=== PATIENT | female | born 1995 | race Caucasian/White ===

== ENCOUNTER 2020-02-05 07:54 | Emergency (ER) | payer OTHER ==
[~2020-02-05] VITALS: Ht 167.6 cm; Wt 68.9 kg
[2020-02-05 08:08] VITALS: BP_SYST 140
--- NOTE | 2020-02-05 08:11 | NUR ---
Patient to ER bed 6 to gown for evaluation. Side rails up. Report given to REKHA Horowitz.
--- NOTE | 2020-02-05 08:17 | NUR ---
DR. FAM AT BEDSIDE ASSESSING PT.
--- NOTE | 2020-02-05 08:18 | NUR ---
RN HAS SPOKEN TO PT. PT C/O N/V X 1 WEEK. PT STATED SHE HAS LOST WT. SHE IS SHE STATES.
[2020-02-05] MEDS ORDERED: NACL 0.9% 1,000 ML IV ONE (08:30)
[2020-02-05] MEDS ORDERED: PROCHLORPERAZINE EDISYLATE 10 MG/2 ML VIAL IVP ONE (08:30)
--- NOTE | 2020-02-05 08:30 | NUR ---
IV INSERTED TO THE RIGHT AC IN ONE ATTEMPT WITH 22G. IV FLUIDS INFUSING AND ANTI NAUSEA MEDICATION GIVEN. PT IS STABLE , NO VOMITING IN ER THUS FAR. PT STATED SHE IS 15 WEEKS .
[2020-02-05 09:04] LABS: CALCIUM 9.5 mg/dL (8.4-11.0); CREATININE 0.48 mg/dL (0.55-1.30); POTASSIUM 3.5 mmol/L (3.5-5.1)
[2020-02-05 09:31] VITALS: BP_SYST 132
--- NOTE | 2020-02-05 09:32 | NUR ---
Patient given written and verbal discharge instructions and verbalizes understanding. ER MD discussed with patient the results and treatment provided. Patient in stable condition. ID arm band removed. IV catheter removed intact and dressing applied, no active bleeding. Rx of B6, AND DOXYLAMINE given. Patient educated on pain management and to follow up with PMD. Pain Scale0/10 . Opportunity for questions provided and answered. Medication side effect fact sheet provided.
== END 2020-02-05 09:31 | disposition home or self-care (01) ==
LOC: SED 07:54
DX: O21.0 Mild hyperemesis gravidarum (principal); Z3A.13 13 weeks gestation of pregnancy
CPT/HCPCS: 36415; 80048; 96361; 96374; 99283; J0780; J7030

== ENCOUNTER 2021-12-07 08:31 | Emergency (ER) | payer OTHER, BC ==
[~2021-12-07] VITALS: Ht 167.6 cm; Wt 61.2 kg
[2021-12-07 08:46] VITALS: BP_SYST 122
[2021-12-07 09:23] LABS: BILIRUBIN,URINE NEGATIVE (NEGATIVE); BLOOD, URINE NEGATIVE (NEGATIVE); COLOR,URINE YELLOW (YELLOW); GLUCOSE,URINE NEGATIVE (NEGATIVE); KETONES,URINE NEGATIVE (NEGATIVE); LEUKOCYTE ESTERASE ,URINE NEGATIVE (NEGATIVE); NITRITE, URINE NEGATIVE (NEGATIVE); PH,URINE 7.5 (5.0-8.0); PROTEIN URINE NEGATIVE (NEGATIVE); UROBILINOGEN,URINE 0.2 (0.2-1.0)
[2021-12-07 09:27] LABS: CLARITY/URINE CLEAR (CLEAR)
[2021-12-07] MEDS ORDERED: ACETAMINOPHEN 325 MG TABLET PO ONE (09:45)
[2021-12-07 13:52] VITALS: BP_SYST 104
== END 2021-12-07 13:52 | disposition home or self-care (01) ==
LOC: SED 08:31
DX: O20.0 Threatened abortion (principal); Z3A.01 Less than 8 weeks gestation of pregnancy
CPT/HCPCS: 36415; 76801; 76817; 81003; 81025; 84702; 99284

== ENCOUNTER 2022-06-05 22:04 | Emergency (ER) | payer OTHER, BC ==
[~2022-06-05] VITALS: Ht 167.6 cm; Wt 61.2 kg
[2022-06-05 22:16] VITALS: BP_SYST 128
--- NOTE | 2022-06-05 22:40 | NUR ---
Pt brought by self, A&Ox4, pt presents to ER with lower abdominal pain , pt states she did a test yesterday yesterday and it was positive, LMP 05/05/22, skin pink and warm, cap refill <3, VSS, will cont to monitor.
--- NOTE | 2022-06-05 23:00 | NUR ---
ER at bedside examining patient.
--- NOTE | 2022-06-06 00:31 | NUR ---
PER PT REQUESTED TO NOT CONTACT EMERGENCY CONTACT WITH INFORMATION.
[2022-06-06 00:36] LABS: BASOPHILS % (AUTO) 0.3 % (0.0-2.0); EOSINOPHILS # (AUTO) 0.1 K/uL (0.0-0.4); EOSINOPHILS % (AUTO) 0.6 % (0.0-4.0); HEMATOCRIT 38.2 % (36-48); LYMPHOCYTES # (AUTO) 2.7 K/uL (1.0-5.5); LYMPHOCYTES % (AUTO) 30.2 % (20.5-51.5); MEAN CORPUSCULAR HEMOGLOBIN 30 pg (27-31); MEAN CORPUSCULAR HGB CONC 34 % (32-36); MEAN CORPUSCULAR VOLUME 88 fL (79.0-98.0); MONOCYTES # (AUTO) 0.6 K/uL (0.0-1.0); MONOCYTES % (AUTO) 6.2 % (1.7-9.3); NEUTROPHILS # (AUTO) 5.6 K/uL (1.8-7.7); NEUTROPHILS % (AUTO) 62.7 % (40.0-70.0); PLATELET COUNT (AUTO) 306 K/uL (130-430); RED BLOOD CELL COUNT(AUTO) 4.35 MIL/uL (4.2-6.2); RED CELL DISTRIBUTION WIDTH 13.9 % (9.0-15.0)
[2022-06-06 01:03] LABS: CALCIUM 9.4 mg/dL (8.4-11.0); CREATININE 0.62 mg/dL (0.55-1.30)
[2022-06-06 01:17] LABS: ALBUMIN 4.3 g/dL (3.4-4.8)
[2022-06-06 02:30] VITALS: BP_SYST 116
--- NOTE | 2022-06-06 02:30 | NUR ---
Patient given written and verbal discharge instructions and verbalizes understanding. ER MD discussed with patient the results and treatment provided. Patient in stable condition. ID arm band removed. Patient educated on pain management and to follow up with PMD. Pain Scale 0/10 Opportunity for questions provided and answered.
== END 2022-06-06 02:30 | disposition home or self-care (01) ==
LOC: SED 22:04
DX: O26.891 Other specified pregnancy related conditions, first trimester (principal); Z3A.01 Less than 8 weeks gestation of pregnancy; Z79.899 Other long term (current) drug therapy
CPT/HCPCS: 36415; 76801; 76817; 80053; 81002; 81025; 84702; 85025; 86901; 99284

== ENCOUNTER 2023-05-12 18:08 | Emergency (ER) | payer OTHER, BC ==
[~2023-05-12] VITALS: Ht 167.6 cm; Wt 59.0 kg
[2023-05-12 18:20] VITALS: BP_SYST 120; PULSE 93; RESP 19; TEMP 98.9; O2SAT 99
[2023-05-12 19:46] LABS: BASOPHILS % (AUTO) 0.4 % (0.0-2.0); EOSINOPHILS # (AUTO) 0.1 K/uL (0.0-0.4); EOSINOPHILS % (AUTO) 2.2 % (0.0-4.0); HEMATOCRIT 40.5 % (36-48); HEMOGLOBIN 13.3 g/dL (12.0-16.0); LYMPHOCYTES # (AUTO) 1.1 K/uL (1.0-5.5); LYMPHOCYTES % (AUTO) 19.8 % (20.5-51.5); MEAN CORPUSCULAR HEMOGLOBIN 29 pg (27-31); MEAN CORPUSCULAR HGB CONC 33 % (32-36); MEAN CORPUSCULAR VOLUME 89 fL (79.0-98.0); MONOCYTES # (AUTO) 0.5 K/uL (0.0-1.0); MONOCYTES % (AUTO) 9.5 % (1.7-9.3); NEUTROPHILS # (AUTO) 3.9 K/uL (1.8-7.7); NEUTROPHILS % (AUTO) 68.1 % (40.0-70.0); PLATELET COUNT (AUTO) 289 K/uL (130-430); RED BLOOD CELL COUNT(AUTO) 4.54 MIL/uL (4.2-6.2); RED CELL DISTRIBUTION WIDTH 13.1 % (9.0-15.0); WHITE BLOOD COUNT (AUTO) 5.8 K/uL (4.8-10.8)
[2023-05-12] MEDS ORDERED: KETOROLAC TROMETHAMINE 30 MG VIAL IM ONE (20:15)
[2023-05-12 21:54] VITALS: BP_SYST 120; PULSE 93; RESP 19; TEMP 98.9; O2SAT 99
== END 2023-05-12 21:54 | disposition home or self-care (01) ==
LOC: SED 18:08
DX: N93.9 Abnormal uterine and vaginal bleeding, unspecified (principal); D21.9 Benign neoplasm of connective and other soft tissue, unspecified; Z79.899 Other long term (current) drug therapy
CPT/HCPCS: 99285; 76801; 84702; 85025; 86900; 86901; 36415; 76817; 81025; 96372; J1885

== ENCOUNTER 2024-02-06 18:14 | Emergency (ER) | payer OTHER, BC ==
[~2024-02-06] VITALS: Ht 167.6 cm; Wt 59.0 kg
[2024-02-06 18:16] VITALS: BP_SYST 118; PULSE 78; RESP 18; TEMP 98.3; O2SAT 100
[2024-02-06] MEDS: HYDROcodone/ACETAMIN 5-325 MG TAB (NORCO/ VICODIN) PO ONE ×2 (18:42→20:05)
[2024-02-06] MEDS ORDERED: HYDR-3921 PO (21:09)
[2024-02-06] MEDS ORDERED: IBUP-1969 PO (21:09)
[2024-02-06 21:18] VITALS: BP_SYST 120; PULSE 84; RESP 18; TEMP 98.2; O2SAT 99
== END 2024-02-06 21:18 | disposition home or self-care (01) ==
LOC: SED 18:14
DX: S33.5XXA Sprain of ligaments of lumbar spine, initial encounter (principal); S13.8XXA Sprain of joints and ligaments of other parts of neck, initial encounter; S09.8XXA Other specified injuries of head, initial encounter; Z79.899 Other long term (current) drug therapy; V89.2XXA Person injured in unspecified motor-vehicle accident, traffic, initial encounter; Y93.89 Activity, other specified; Y92.89 Other specified places as the place of occurrence of the external cause; Y99.8 Other external cause status
CPT/HCPCS: 70450-TC; 72100; 72125-TC; 81025; 99284